=== PATIENT | female | born 1940 | race Caucasian/White ===

== ENCOUNTER 2022-08-28 16:56 | Inpatient (IN) | payer OTHER ==
[~2022-08-28] VITALS: Ht 144.8 cm; Wt 37.2 kg
--- NOTE | 2022-08-28 17:00 | NUR ---
RECEIVED PT FROM VILMA DOUGHERTY. PT BIB FAMILY MEMBER FROM URGENT CARE, PT HAS HAD SOB X2 DAYS, PT WAS DX WITH PNEUMONIA 2 WEEKS AGO. RESP SHALLOW, LUNG SOUND DIMINSHED. PT ON N/C AT 3 LPM. O2 SAT AT 97%. NORMAL S1S2 NOTED. DENIES N/V/D/C. DISTAL PULSES NORMAL, SKIN WARM, CAP REFILL < 3 SECS, NO EDEMA. DENIES PAIN. SIDERAILS UP X2.
[2022-08-28 17:07] VITALS: BP_SYST 153
[2022-08-28] MEDS ORDERED: NACL 0.9% 1,000 ML IV ONE (17:30)
--- NOTE | 2022-08-28 17:36 | NUR ---
DR. VILLALPANDO AT BEDSIDE TO ASSESS PT.
[2022-08-28 17:56] LABS: MONOCYTES # (AUTO) 0.1 K/uL (0.0-1.0); RED CELL DISTRIBUTION WIDTH 14.5 % (9.0-15.0)
[2022-08-28 18:04] LABS: BASOPHILS % (AUTO) 0.5 % (0.0-2.0); EOSINOPHILS % (AUTO) 0.1 % (0.0-4.0); HEMATOCRIT 40.3 % (36-48); HEMOGLOBIN 13.4 g/dL (12.0-16.0); LYMPHOCYTES # (AUTO) 0.8 K/uL (1.0-5.5); LYMPHOCYTES % (AUTO) 8.3 % (20.5-51.5); MEAN CORPUSCULAR HEMOGLOBIN 30 pg (27-31); MEAN CORPUSCULAR HGB CONC 33 % (32-36); MEAN CORPUSCULAR VOLUME 89 fL (79.0-98.0); MONOCYTES % (AUTO) 1.1 % (1.7-9.3); NEUTROPHILS # (AUTO) 8.5 K/uL (1.8-7.7); PLATELET COUNT (AUTO) 418 K/uL (130-430); RED BLOOD CELL COUNT(AUTO) 4.52 MIL/uL (4.2-6.2); WHITE BLOOD COUNT (AUTO) 9.4 K/uL (4.8-10.8)
--- NOTE | 2022-08-28 18:14 | NUR ---
LABS OBTAINED, COVID/FLU OBTAINED, EKG COMPLETED, CXR COMPLETED. NS 1000ML BOLUS INITATED AT 999ML/HOUR TO BE COMPLETED AT 1915. PT DENIES PAIN.
--- NOTE | 2022-08-28 18:15 | NUR ---
DR. VILLALPANDO MADE AWARE PT HAS BLE EDEMA. DR. VILLALPANDO STATED HE WILL ORDER U/S TO RULE OUT DVT.
[2022-08-28 18:25] LABS: ANION GAP 4 (5-15); CHLORIDE 95 mmol/L (98-107); CREATININE 0.54 mg/dL (0.55-1.30); GLUCOSE 112 mg/dL (70-99); UREA NITROGEN, BLOOD 11 mg/dL (8-21)
[2022-08-28] MEDS ORDERED: PRED10TA PO (18:28)
[2022-08-28] MEDS ORDERED: LOSA50TA28 PO (18:28)
[2022-08-28] MEDS ORDERED: ALBU2.5V7 INH (18:28)
[2022-08-28] MEDS ORDERED: LEVO100T9 PO (18:28)
[2022-08-28 18:30] LABS: ALANINE AMINOTRANSFERASE 7 U/L (12-78); ALBUMIN 3.1 g/dL (3.4-4.8); ASPARTATE AMINOTRANSFERASE 15 U/L (10-37); TOTAL BILIRUBIN 0.9 mg/dL (0.0-1.0)
[2022-08-28 19:13] LABS: BILIRUBIN,URINE NEGATIVE (NEGATIVE); CLARITY/URINE CLOUDY (CLEAR); COLOR,URINE YELLOW (YELLOW); GLUCOSE,URINE NEGATIVE (NEGATIVE); KETONES,URINE TRACE (NEGATIVE); LEUKOCYTE ESTERASE ,URINE 2+ (NEGATIVE); NITRITE, URINE NEGATIVE (NEGATIVE); PH,URINE 7.5 (5.0-8.0); PROTEIN URINE NEGATIVE (NEGATIVE); UROBILINOGEN,URINE 0.2 (0.2-1.0)
[2022-08-28 19:23] LABS: BLOOD, URINE TRACE (NEGATIVE)
[2022-08-28] MEDS ORDERED: methylPREDNISolone SOD SUCC/PF 62.5 MG/ML VIAL IVP ONE (19:45)
[2022-08-28] MEDS ORDERED: ALBUTEROL SULFATE 0.083% 2.5 MG/3 ML VIAL.NEB INH ONE (19:45)
[2022-08-28] MEDS ORDERED: MAGNESIUM SULFATE 50 ML IV ONE (19:45)
--- NOTE | 2022-08-28 19:47 | NUR ---
MED REC COMPLETED. PT ENDORSED TO VILMA GRANT.
[2022-08-28] MEDS ORDERED: AZITHROMYCIN 500 MG in NS 250 ML IV ONE (20:30)
[2022-08-28] MEDS ORDERED: cefTRIAXone 1 GM IVPB PREMIX 50 ML IV ONE (20:30)
[2022-08-28 20:38] LABS: BACTERIA,URINE MODERATE /HPF (None Seen); RBC,URINE 0-3 /HPF (0-3)
[2022-08-28 20:39] LABS: URINE AMORPHOUS PHOSPHATES 2+ /HPF (None Seen)
--- NOTE | 2022-08-28 20:41 | NUR ---
Admit bed requested Patient will be admitted to care of Dr. Snow Admitted to Telemetry unit. Diagnosis Respiratory Failure Inpatient (Yes or No) yes Observation (Yes or No) no Orientation concerns or request close to nursing station (Yes or No) no Covid Status negative On vent or bipap no Isolation requirements no Needs a sitter no From Home (Yes or if No enter name of facility) yes Requires Dialysis (Yes or No) no Med Rec Completed (Yes of No) yes
[2022-08-28] MEDS ORDERED: AZITHROMYCIN 500 MG/VIAL (ZITHROMAX) IV ONE (21:16)
--- NOTE | 2022-08-28 22:30 | NUR ---
Patient resting quietly. No acute distress noted. Vital signs within normal range.
--- NOTE | 2022-08-28 23:15 | NUR ---
ASSISTED PATIENT TO BEDSIDE COMMODE
--- NOTE | 2022-08-29 | NUR ---
DAUGHTER OF PATIENT BROUGHT FOOD FROM OUTSIDE FOR PATIENT.
--- NOTE | 2022-08-29 00:30 | NUR ---
Patient will be admitted to care of [facility]. Admitted to TELE unit. Will go to room 114B. Belongings list completed. Complete and up to date summary report printed. SBAR report to be given at bedside with opportunity for questions.
[2022-08-29 01:35] VITALS: BP_SYST 109
--- NOTE | 2022-08-29 02:00 | NUR ---
pt is Kyrgyz speaker with daughter accompany her, pt is ambulatory with Assist with oxygen 2 litter nasal canulla sating with 95 %. no skin problem noted, pt was provided bed commode on her bedside
--- NOTE | 2022-08-29 05:35 | NUR ---
CONSULTATION PAGED/CALLED Reason for Consultation: RESP. FAILURE/ COPD Person Who was Notified: MANSOOR Consulting Physician: CLAUDIA Diabetologist Specialty: PULMO Ordering Physician: JEREMI
--- NOTE | 2022-08-29 06:37 | NUR ---
daughter called wanted the pt to be moved to different room SHARON since patient roomate is coughing all the time. i have explained the daughter that i will talk to the hand cigar making supervisor and request to be transferred, but she is insisted to want NOW. i have explained again, but she doesn't want to take as no answers.
[2022-08-29 08:00] VITALS: BP_SYST 124
[2022-08-29] MEDS ORDERED: HYDROcodone/ACETAMIN 10-325 MG TAB PO PRN (10:15)
[2022-08-29] MEDS ORDERED: ONDANSETRON HCL 4 MG/2 ML VIAL IVP PRN (10:15)
[2022-08-29] MEDS ORDERED: NALOXONE HCL 0.4 MG/ML AMP (NARCAN) IVP PRN ×2 (10:15)
[2022-08-29] MEDS ORDERED: HYDROcodone/ACETAMIN 5-325 MG TAB (NORCO/ VICODIN) PO PRN (10:15)
[2022-08-29] MEDS ORDERED: ACETAMINOPHEN 325 MG TABLET PO PRN (10:15)
[2022-08-29] MEDS ORDERED: LOSARTAN POTASSIUM 50 MG TABLET (COZAAR) PO ONE (10:30)
[2022-08-29] MEDS: ALBUTEROL SULFATE 0.083% 2.5 MG/3 ML VIAL.NEB INH SCH ×4 (11:13→23:49)
[2022-08-29] MEDS: IPRATROPIUM BROM 0.5 MG/2.5 ML VIAL.NEB (ATROVENT) INH SCH ×4 (11:13→23:49)
--- NOTE | 2022-08-29 11:27 | NUR ---
CONSULTATION PAGED/CALLED Reason for Consultation: [] UTI/PNA Person Who was Notified: [] AYUSH Consulting Physician: [] DR HORNER Floral Specialist Specialty: [] ID Ordering Physician: [] DR Triston BLOOD
[2022-08-29] MEDS ORDERED: cefTRIAXone 1 GM IVPB PREMIX 50 ML IV SCH (12:00)
[2022-08-29 12:01] VITALS: BP_SYST 143
[2022-08-29] MEDS: AZITHROMYCIN 500 MG in NS 250 ML IV SCH (12:50)
[2022-08-29] MEDS ORDERED: NORMAL SALINE 5 ML DISP.SYRIN IVF SCH (14:00)
[2022-08-29] MEDS: FLUCONAZOLE 200 mg/ NS 100 ML IV SCH (14:23)
[2022-08-29] MEDS: NORMAL SALINE 5 ML DISP.SYRIN IVF SCH ×2 (14:23→21:26)
[2022-08-29 15:48] VITALS: BP_SYST 105
[2022-08-29 16:00] VITALS: BP_SYST 122
--- NOTE | 2022-08-29 19:00 | NUR ---
P.T. NOTES P.T. EVAL COMPLETED; REFER TO EVAL FOR DETAILS.
[2022-08-29 20:00] VITALS: BP_SYST 138
[2022-08-29] MEDS: CEFEPIME 2 GM in D5W 100 ML IV SCH (21:25)
[2022-08-29] MEDS: METHYLPREDNISOLONE SOD SUCC 40 MG/ML VIAL IVP SCH (21:25)
[2022-08-30] VITALS (7 sets, daily range): BP systolic 131–159
[2022-08-30] MEDS: IPRATROPIUM BROM 0.5 MG/2.5 ML VIAL.NEB (ATROVENT) INH SCH ×5 (04:02→22:12)
[2022-08-30] MEDS: ALBUTEROL SULFATE 0.083% 2.5 MG/3 ML VIAL.NEB INH SCH ×5 (04:02→22:12)
[2022-08-30] MEDS: NORMAL SALINE 5 ML DISP.SYRIN IVF SCH ×3 (05:40→21:18)
[2022-08-30 05:44] LABS: BASOPHILS % (AUTO) 0.1 % (0.0-2.0); HEMATOCRIT 39.3 % (36-48); HEMOGLOBIN 13.2 g/dL (12.0-16.0); LYMPHOCYTES # (AUTO) 0.5 K/uL (1.0-5.5); LYMPHOCYTES % (AUTO) 5.8 % (20.5-51.5); MEAN CORPUSCULAR HEMOGLOBIN 30 pg (27-31); MEAN CORPUSCULAR HGB CONC 34 % (32-36); MEAN CORPUSCULAR VOLUME 90 fL (79.0-98.0); MONOCYTES % (AUTO) 0.5 % (1.7-9.3); NEUTROPHILS # (AUTO) 8.3 K/uL (1.8-7.7); NEUTROPHILS % (AUTO) 93.6 % (40.0-70.0); PLATELET COUNT (AUTO) 430 K/uL (130-430); RED BLOOD CELL COUNT(AUTO) 4.38 MIL/uL (4.2-6.2); RED CELL DISTRIBUTION WIDTH 14.8 % (9.0-15.0); WHITE BLOOD COUNT (AUTO) 8.9 K/uL (4.8-10.8)
--- NOTE | 2022-08-30 05:44 | NUR ---
PIV TO LAC D/C ,REDNESS NOTED TO SITE. RE-STARTED A NEW PIV TO RFA GAUGE 20 , FLUSHES WELL WITH GOOD BLOOD RETURN NOTED . PATIENT TOLERATED PROCEDURE WELL
[2022-08-30 06:00] LABS: ALANINE AMINOTRANSFERASE 2 U/L (12-78); ALBUMIN 2.8 g/dL (3.4-4.8); ANION GAP 6 (5-15); ASPARTATE AMINOTRANSFERASE 13 U/L (10-37); C-REACTIVE PROTEIN QUANT 3.5 mg/dL (0-0.5); CHLORIDE 98 mmol/L (98-107); CREATININE 0.72 mg/dL (0.55-1.30); GLUCOSE 160 mg/dL (70-99); PHOSPHORUS 3.9 mg/dL (2.7-4.5); TOTAL BILIRUBIN 0.4 mg/dL (0.0-1.0); UREA NITROGEN, BLOOD 17 mg/dL (8-21)
[2022-08-30] MEDS: LEVOTHYROXINE SODIUM 0.1 MG TABLET PO SCH (06:03)
[2022-08-30 06:42] LABS: ERYTHROCYTE SEDIMENTATION RATE 48 MM/HR (0-20)
[2022-08-30] MEDS: METHYLPREDNISOLONE SOD SUCC 40 MG/ML VIAL IVP SCH ×2 (09:12→21:05)
[2022-08-30] MEDS: LOSARTAN POTASSIUM 50 MG TABLET (COZAAR) PO SCH (09:12)
[2022-08-30] MEDS: CEFEPIME 2 GM in D5W 100 ML IV SCH ×2 (09:12→21:07)
--- NOTE | 2022-08-30 13:36 | NUR ---
Report received from CATHI Goyal for continuity of care. Patient in stable condition. Respiration even and unlabored. No c/o pain at this time.
[2022-08-30] MEDS: FLUCONAZOLE 200 mg/ NS 100 ML IV SCH (13:50)
[2022-08-30] MEDS: AZITHROMYCIN 500 MG in NS 250 ML IV SCH (13:51)
--- NOTE | 2022-08-30 16:21 | NUR ---
Dietitian Recommendations * Liberalize diet to Regular diet * Add Ensure TID, Eron BID (supplements yield 1230 kcal/day, 65 gm protein/day) * Encourage good PO intakes LP, MS, RD Please refer to Nutrition Assessment for details. Addendum: 08/30/22 at [address] Amended: Links added.
--- NOTE | 2022-08-30 18:51 | NUR ---
Report give to awake overnight counselor RN for continuity of care. Patient stable.
--- NOTE | 2022-08-30 19:34 | NUR ---
RECEIVED PT LYING IN BED, PT WITH TACHYPNEA. PT ON 3L O2 O2 SAT 94% IV TO RT FA SITE CDI. LUNG SOUNDS CLEAR. PALPABLE PULSE TO ALL EXTREMITIES. ENCOURAGED PT TO SHIFT WEIGHT. BEDSIDE COMMODE NEAR BED. FAMILY MEMBER AT BEDSIDE. BED ALARM ON BED IN LOW POSITION.
[2022-08-31] MEDS: IPRATROPIUM BROM 0.5 MG/2.5 ML VIAL.NEB (ATROVENT) INH SCH ×7 (00:07→23:42)
[2022-08-31] MEDS: ALBUTEROL SULFATE 0.083% 2.5 MG/3 ML VIAL.NEB INH SCH ×7 (00:07→23:42)
[2022-08-31 00:14] VITALS: BP_SYST 150
--- NOTE | 2022-08-31 02:00 | NUR ---
pt was given to me from another nurse, pt is alert and oriented with nasal canula 2 L. pt has bed side commode. able to urinate
[2022-08-31] MEDS: NORMAL SALINE 5 ML DISP.SYRIN IVF SCH ×2 (06:00→14:00)
[2022-08-31 07:23] LABS: HEMATOCRIT 37.7 % (36-48); HEMOGLOBIN 12.5 g/dL (12.0-16.0); LYMPHOCYTES # (AUTO) 0.4 K/uL (1.0-5.5); LYMPHOCYTES % (AUTO) 5.2 % (20.5-51.5); MEAN CORPUSCULAR HEMOGLOBIN 30 pg (27-31); MEAN CORPUSCULAR HGB CONC 33 % (32-36); MEAN CORPUSCULAR VOLUME 90 fL (79.0-98.0); MONOCYTES # (AUTO) 0.1 K/uL (0.0-1.0); MONOCYTES % (AUTO) 1.3 % (1.7-9.3); NEUTROPHILS # (AUTO) 7.6 K/uL (1.8-7.7); NEUTROPHILS % (AUTO) 93.5 % (40.0-70.0); PLATELET COUNT (AUTO) 387 K/uL (130-430); RED CELL DISTRIBUTION WIDTH 14.2 % (9.0-15.0); WHITE BLOOD COUNT (AUTO) 8.1 K/uL (4.8-10.8)
[2022-08-31 07:39] LABS: ANION GAP 5 (5-15); C-REACTIVE PROTEIN QUANT 1.3 mg/dL (0-0.5); CHLORIDE 94 mmol/L (98-107); CREATININE 0.45 mg/dL (0.55-1.30); GLUCOSE 149 mg/dL (70-99); UREA NITROGEN, BLOOD 16 mg/dL (8-21)
[2022-08-31] MEDS: LEVOTHYROXINE SODIUM 0.1 MG TABLET PO SCH (09:09)
[2022-08-31] MEDS: LOSARTAN POTASSIUM 50 MG TABLET (COZAAR) PO SCH (09:09)
[2022-08-31] MEDS: METHYLPREDNISOLONE SOD SUCC 40 MG/ML VIAL IVP SCH ×2 (09:10→20:42)
[2022-08-31] MEDS: CEFEPIME 2 GM in D5W 100 ML IV SCH ×2 (09:10→20:43)
[2022-08-31 12:27] VITALS: BP_SYST 128
[2022-08-31 12:54] LABS: ERYTHROCYTE SEDIMENTATION RATE 31 MM/HR (0-20)
[2022-08-31] MEDS: AZITHROMYCIN 500 MG in NS 250 ML IV SCH (13:10)
--- NOTE | 2022-08-31 15:04 | NUR ---
0800: AWAKE, ALERT, ORIENTED X 3 TO NAME, PERSON, AND PLACE. NO S/S OF ANY ACUTE DISTRESS NOTED, SHORTNESS OF BREATH ON EXERTION. WILL CONTINUE TO REASSESS PRN. 1230: TOLERATED PO WELL WITH FAIR APPETITE NO ABDOMINAL DISCOMFORT NOTED.
[2022-08-31 15:40] VITALS: BP_SYST 129
--- NOTE | 2022-08-31 18:57 | NUR ---
PATIENT HAD REMAINED STABLE, W/O ANY CHANGE IN LOC, AFEBRILE, IV DIFLUCAN WAS DC'D BY MAHENDRA BUSTILLO TO DISCHARGE HOME AND CONTINUE ON PO LEVAQUIN. WILL ENDORSE PATIENT TO PM SHIFT NURSE.
[2022-08-31 20:00] VITALS: BP_SYST 136
[2022-09-01 02:28] VITALS: BP_SYST 129
[2022-09-01] MEDS: IPRATROPIUM BROM 0.5 MG/2.5 ML VIAL.NEB (ATROVENT) INH SCH ×6 (03:53→23:00)
[2022-09-01] MEDS: ALBUTEROL SULFATE 0.083% 2.5 MG/3 ML VIAL.NEB INH SCH ×6 (03:53→23:00)
[2022-09-01 07:00] VITALS: BP_SYST 158
[2022-09-01] MEDS: LEVOTHYROXINE SODIUM 0.1 MG TABLET PO SCH (07:00)
[2022-09-01 07:12] LABS: BASOPHILS % (AUTO) 0.1 % (0.0-2.0); HEMOGLOBIN 12.7 g/dL (12.0-16.0); LYMPHOCYTES # (AUTO) 0.5 K/uL (1.0-5.5); LYMPHOCYTES % (AUTO) 5.5 % (20.5-51.5); MEAN CORPUSCULAR HEMOGLOBIN 30 pg (27-31); MEAN CORPUSCULAR HGB CONC 33 % (32-36); MEAN CORPUSCULAR VOLUME 90 fL (79.0-98.0); MONOCYTES # (AUTO) 0.2 K/uL (0.0-1.0); NEUTROPHILS # (AUTO) 8.5 K/uL (1.8-7.7); NEUTROPHILS % (AUTO) 92.4 % (40.0-70.0); PLATELET COUNT (AUTO) 387 K/uL (130-430); RED BLOOD CELL COUNT(AUTO) 4.22 MIL/uL (4.2-6.2); RED CELL DISTRIBUTION WIDTH 14.7 % (9.0-15.0); WHITE BLOOD COUNT (AUTO) 9.2 K/uL (4.8-10.8)
[2022-09-01 07:38] LABS: ANION GAP 5 (5-15); CHLORIDE 94 mmol/L (98-107); CREATININE 0.59 mg/dL (0.55-1.30); GLUCOSE 139 mg/dL (70-99); UREA NITROGEN, BLOOD 20 mg/dL (8-21)
[2022-09-01 08:07] VITALS: BP_SYST 129
[2022-09-01] MEDS: CEFEPIME 2 GM in D5W 100 ML IV SCH ×2 (10:00→20:10)
[2022-09-01] MEDS: LOSARTAN POTASSIUM 50 MG TABLET (COZAAR) PO SCH (10:01)
[2022-09-01] MEDS: METHYLPREDNISOLONE SOD SUCC 40 MG/ML VIAL IVP SCH ×2 (10:01→20:10)
[2022-09-01 12:00] VITALS: BP_SYST 131
[2022-09-01] MEDS: AZITHROMYCIN 500 MG in NS 250 ML IV SCH (13:48)
[2022-09-01 16:00] VITALS: BP_SYST 136
--- NOTE | 2022-09-01 19:10 | NUR ---
PATIENT RESTING IN BED, RESPIRATIONS EVEN AND UL, NO DISTRESS, NO C/O PAIN/DISCOMFORT. REPORT GIVEN TO PM NURSE FOR CONTINUITY OF CARE.
[2022-09-01 20:00] VITALS: BP_SYST 149
--- NOTE | 2022-09-01 21:46 | NUR ---
2100:YAYA BRICE CAME AND STATED PTS DAUGHTER COMPLAINING THAT ,PT IS VERY ANXIOUS AFTER THE BREATHING TREATMENT AND ITS WORSE TODAY THAN BEFORE AND SHE IS THINKING THAT ITS BECAUSE OF THE BREATHING TREATMENT. AND PTS DAUGHTER IS ASKING WETHER WE CAN CHANGE THE MEDICATION . YAYA ASKED ME TO CALL AND CHECK WITH . PAGED: DR MORAES WHO IS WALL COVERING INSTALLER CALLED BACK AROUND 2129 ,INFORMED MD THAT PTS FAMILY IS CONCERNED THAT PT IS VERY ANXIOUS AFTER GETTING THE BREATHING TREATMENT, DAUGHTER IS ASKING WETHER WE CAN CHANGE IT INTO ANOTHER MEDICATION. STATED I CANT CHANGE IT INTO ANOTHER MEDICATION IF SHE IS ANXIOUS AFTER THE BREATHING TREATMENT ,DONT GIVE BREATHING TREATMENT TONIGHT AND LET DIRECTOR EXPERIMENTAL MEDICINE COME AND ASSESS THE PT TOMORROW AND LET THEM DECIDE . ASKED MD IF PT NEEDS BREATHING TREATMENT AT NIGHT DO YOU WANT TO GIVE AN ORDER PRN . STATED NO . Addendum: 09/01/22 at 2253 by Chasity Valente RN I NOTIFIED MDS ORDER TO PRIMARY RN AND YAYA AND EXPLAINED TO IT PTS DAUGHTER JOSE , SHE SAID" I DIDNT ASK TO STOP THE MEDICATION COMPLETELY , I ASKED IF SHE SHE CAN GET ANOTHER MEDICATION OR SKIP THE NEXT DOSE , I DONT WANT TO STOP IT COMPLETELY , I WANT YOU TO GIVE THE MEDICATION IF SHE NEEDS IT , SHE IS IS BENEFITED FROM IT I WANT SHE TO HAVE IT , MIGHT BE YOU CAN SKIP THE MIDNIGHT DOSE AND GIVE THE 4 AM DOSE , BUT I DONT WANT MY MOM TO SUFFER FROM NOT TO HAVE THIS MEDICATION , DID YOU TALK TO JEREMI ?" I INFORMED HER THAT THIS IS RELATED TO BREATHING TREATMENT I CALLED DIRECTOR EXPERIMENTAL MEDICINE . AGAIN SHE REPEATED I DONT WANT TO STOP THE MEDICATION , I WANT YOU TO GIVE THE MEDICATION IF SHE REALLY NEEDS IT ." I INFORMED HER THAT I WILL NOTIFY IT TO THE RESPIRATORY THERAPIST. I NOTIFIED DAUGHTERS RESPONSE TO YAYA MULLER. ALSO I NOTIFIED MERON RAMESH ABOUT THE MD ORDER AND PTS DAUGHTERS WISH .
--- NOTE | 2022-09-01 23:01 | NUR ---
ASSIST Patient out of bed to bsc patient on 02 NC @ 3 LPM anxiety noted Family has left Home , Fall measures implemented / .
[2022-09-01] MEDS: NORMAL SALINE 5 ML DISP.SYRIN IVF SCH (23:22)
[2022-09-02 00:52] VITALS: BP_SYST 144
--- NOTE | 2022-09-02 01:12 | NUR ---
Hourly Rounding assist patient to BSC tolerated back to bed 02 SAT 93 % skin dry warm / cont. to monitor / .
[2022-09-02] MEDS: ALBUTEROL SULFATE 0.083% 2.5 MG/3 ML VIAL.NEB INH SCH ×6 (03:00→23:11)
[2022-09-02] MEDS: IPRATROPIUM BROM 0.5 MG/2.5 ML VIAL.NEB (ATROVENT) INH SCH ×6 (03:00→23:11)
[2022-09-02 06:44] LABS: BASOPHILS % (AUTO) 0.1 % (0.0-2.0); HEMATOCRIT 40.8 % (36-48); HEMOGLOBIN 13.5 g/dL (12.0-16.0); LYMPHOCYTES # (AUTO) 0.8 K/uL (1.0-5.5); LYMPHOCYTES % (AUTO) 8.1 % (20.5-51.5); MEAN CORPUSCULAR HEMOGLOBIN 30 pg (27-31); MEAN CORPUSCULAR HGB CONC 33 % (32-36); MEAN CORPUSCULAR VOLUME 90 fL (79.0-98.0); MONOCYTES # (AUTO) 0.5 K/uL (0.0-1.0); MONOCYTES % (AUTO) 5.1 % (1.7-9.3); NEUTROPHILS # (AUTO) 8.9 K/uL (1.8-7.7); NEUTROPHILS % (AUTO) 86.7 % (40.0-70.0); PLATELET COUNT (AUTO) 427 K/uL (130-430); RED BLOOD CELL COUNT(AUTO) 4.53 MIL/uL (4.2-6.2); RED CELL DISTRIBUTION WIDTH 14.3 % (9.0-15.0); WHITE BLOOD COUNT (AUTO) 10.3 K/uL (4.8-10.8)
[2022-09-02 08:00] VITALS: BP_SYST 134
[2022-09-02 08:32] LABS: ALANINE AMINOTRANSFERASE 10 U/L (12-78); ALBUMIN 2.8 g/dL (3.4-4.8); ANION GAP 1 (5-15); ASPARTATE AMINOTRANSFERASE 15 U/L (10-37); CALCIUM 8.9 mg/dL (8.4-11.0); CHLORIDE 95 mmol/L (98-107); CREATININE 0.48 mg/dL (0.55-1.30); GLUCOSE 99 mg/dL (70-99); TOTAL BILIRUBIN 0.5 mg/dL (0.0-1.0); UREA NITROGEN, BLOOD 24 mg/dL (8-21)
[2022-09-02 08:48] LABS: ERYTHROCYTE SEDIMENTATION RATE 18 MM/HR (0-20)
[2022-09-02 09:30] LABS: C-REACTIVE PROTEIN QUANT < 0.2 mg/dL (0-0.5)
[2022-09-02] MEDS: METHYLPREDNISOLONE SOD SUCC 40 MG/ML VIAL IVP SCH ×2 (10:14→21:55)
[2022-09-02] MEDS: LOSARTAN POTASSIUM 50 MG TABLET (COZAAR) PO SCH (10:14)
[2022-09-02] MEDS: CEFEPIME 2 GM in D5W 100 ML IV SCH ×2 (10:15→21:58)
[2022-09-02] MEDS: LEVOTHYROXINE SODIUM 0.1 MG TABLET PO SCH (10:16)
[2022-09-02 12:30] VITALS: BP_SYST 149
[2022-09-02] MEDS: NORMAL SALINE 5 ML DISP.SYRIN IVF SCH ×2 (13:05→21:58)
[2022-09-02] MEDS: AZITHROMYCIN 500 MG in NS 250 ML IV SCH (13:05)
[2022-09-02 16:15] VITALS: BP_SYST 139
--- NOTE | 2022-09-02 18:32 | NUR ---
Nutrition F/U: Admitting Diagnosis Respiratory failure/COPD Reviewed Pertinent Medical/Surgical Hx Medical Record; Patient; Family Member Medical History Comment: PMH: pulmonary fibrosis, hypothyroidism, and HTN per physician notes Per EMR review, pt also found w/ recurrent pneumonia, UTI, and hypoxia Subjective Information: RD rounded to patient room and s/w patient at bedside. Patient appeared fearful/anxious and RD asked how she could help. Per pt, nothing is working, I'm anxious as pt lightly tugged at her lines. RD assured patient that all lines/tubes/machines are being monitored, but RD will s/w pt RN and ask RN to visit pt in room, pt agreeable. Due to anxiety and pts current state of mind, nutrition f/u assessment with patient is not appropriate at this time. RD s/w RN who verified that pt is drinking ensure TID and receiving Eron BID. RN reports that per pt dtr: pts appetite at home is generally poor. RD called pt daughter (# per RN screen). Daughter reports pt appetite has been declining, with worsened PO more recently. Dtr reports pt likes to eat soups and flan, noticing pt only eats soft, moist foods. Dtr reports pt does not like ONS at home, however pt has been enjoying Ensure during admit so she will try them again at home. RD provided nutrition education to dtr: COPD and mealtime fatigue disc high kcal foods and snacks, offering 5-6 small meals during the day versus 3 large meals (can be overwhelming), and increased energy/protein needs. Pt daughter appreciative of nutrition information and repeated back to RD the changes she can make when feeding her mother at home: small meals/snacks, high kcal meals/snacks, Ensure ONS. Current Diet Order/Nutrition Support: Regular diet, Ensure Enlive TID, Eron BID x 3 days Patient/Significant Other Able To Verbalize Education Provided Completed 09/02 w/daughterReglape: COPD/fatigue - high kcal snacks, ONS, small meals to prevent fatigue Pertinent Medications: synthroid, solu-medrol, cozaar, NS at 5mL Pertinent Labs: Drawn 09/02 - Na 131 L, BUN 24 H, Cre 0.48 L Height (Feet) 4 feet Height (Inches) 9.00 inches Weight (Pounds) 82 pounds Weight (Calculated Kilograms) 37.302105 kilograms Patient Weight 37.195 kg Body Mass Index 17.74 kg/m2 Usual Weight 149 lbs %UBW 55 %IBW 88 [place]/Adjusted Body Weight 93#/42.5 kg. 8 Recent Weight Change Yes - 64# wt loss/43% wt change within 1 year Weight Status Underweight Food Allergies No Current % PO Fair 53% x 10 meals Estimated Energy Expenditure (kcals/day) 8841-6993 (30-35 kcal/kg IBW d/t wt gain, acute on chronic illness) Estimated Protein Required (g/day) 51-64 (1.2-1.5 gm/kg IBW d/t wt gain, acute on chronic illness) Estimated Fluid Required (l/day) 933-1119 (25-30 ml/kg CBW d/t GERIAT maintenance) Problem/Etiology/Signs/Symptoms * Moderate malnutrition R/T increased energy and protein needs a/w COPD AEB unintentional wt loss of 64#/43% wt change within 1 year and findings of muscle wasting in clavicles and thin upper extremities lacking subcutaneous adipose tissue, BMI: 17.7 kg/m2, and 88% of IBW (On-going) Expected Outcomes/Goals - Monitor appetite and PO intakes w/ goal of pt meeting >75% of estimated nutritional needs, labs trending WNL, normal GI function, and skin integrity/wt maintenance Dietitian Recommendations * Continue Regular diet + Ensure TID, Eron BID (ONS, Eron: yields 1230 kcals, 65 gm pro) * Encourage good PO intakes * Follow-up on COPD nutrition education w/daughter Follow Up High Risk: F/U in 2-3days
--- NOTE | 2022-09-02 18:38 | NUR ---
Dietitian Recommendations * Continue Regular diet + Ensure TID, Eron BID (ONS, Eron: yields 1230 kcals, 65 gm pro) * Encourage good PO intakes * Follow-up on COPD nutrition education w/daughter Please refer to nutrition f/u for details, thanks! CC, MPH, RDN
--- NOTE | 2022-09-02 19:03 | NUR ---
PATIENT RESTING IN BED, RESPIRATIONS EVEN AND UL ON 3LNC. DENIES PAIN/DISCOMFORT. NO SIGNIFICANT CHANGES THROUGHOUT SHIFT. ALL NEEDS MET. DAUGHTER AT BEDSIDE. CALL LIGHT IN EASY REACH.
[2022-09-02 20:00] VITALS: BP_SYST 142
[2022-09-02 20:06] LABS: MYCOPLASMA PNEUMONIAE IgM <770 U/mL (0-769)
[2022-09-03] VITALS: BP_SYST 148
[2022-09-03] MEDS: IPRATROPIUM BROM 0.5 MG/2.5 ML VIAL.NEB (ATROVENT) INH SCH ×4 (03:00→15:48)
[2022-09-03] MEDS: ALBUTEROL SULFATE 0.083% 2.5 MG/3 ML VIAL.NEB INH SCH ×4 (03:00→15:48)
[2022-09-03] MEDS: NORMAL SALINE 5 ML DISP.SYRIN IVF SCH ×2 (06:00→14:00)
[2022-09-03 07:01] LABS: ANION GAP 2 (5-15); C-REACTIVE PROTEIN QUANT 0.3 mg/dL (0-0.5); CALCIUM 8.1 mg/dL (8.4-11.0); CHLORIDE 93 mmol/L (98-107); CREATININE 0.51 mg/dL (0.55-1.30); GLUCOSE 141 mg/dL (70-99); UREA NITROGEN, BLOOD 23 mg/dL (8-21)
[2022-09-03 07:13] LABS: BASOPHILS % (AUTO) 0.1 % (0.0-2.0); HEMATOCRIT 42.1 % (36-48); HEMOGLOBIN 14.1 g/dL (12.0-16.0); LYMPHOCYTES # (AUTO) 0.4 K/uL (1.0-5.5); LYMPHOCYTES % (AUTO) 5.6 % (20.5-51.5); MEAN CORPUSCULAR HEMOGLOBIN 30 pg (27-31); MEAN CORPUSCULAR HGB CONC 33 % (32-36); MEAN CORPUSCULAR VOLUME 90 fL (79.0-98.0); MONOCYTES # (AUTO) 0.1 K/uL (0.0-1.0); MONOCYTES % (AUTO) 1.4 % (1.7-9.3); NEUTROPHILS % (AUTO) 92.9 % (40.0-70.0); PLATELET COUNT (AUTO) 404 K/uL (130-430); RED CELL DISTRIBUTION WIDTH 14.6 % (9.0-15.0); WHITE BLOOD COUNT (AUTO) 7.6 K/uL (4.8-10.8)
--- NOTE | 2022-09-03 07:20 | NUR ---
OPENING NOTE RECEIVED SBAR FROM NIGHT RN. PATIENT IN BED RESPIRATIONS EVEN, NON LABORED, BED IN LOW AND LOCKED POSITION CALL LIGHT WITHIN REACH, BED ALARM ON
[2022-09-03] MEDS: LEVOTHYROXINE SODIUM 0.1 MG TABLET PO SCH (07:46)
--- NOTE | 2022-09-03 08:30 | NUR ---
bsc assisted patient to bsc, large BM and voided, provided gómez care, returned to bed, no complaints of pain or discomfort
[2022-09-03] MEDS: CEFEPIME 2 GM in D5W 100 ML IV SCH (08:55)
[2022-09-03] MEDS: METHYLPREDNISOLONE SOD SUCC 40 MG/ML VIAL IVP SCH (08:55)
[2022-09-03] MEDS: LOSARTAN POTASSIUM 50 MG TABLET (COZAAR) PO SCH (08:56)
[2022-09-03 09:53] LABS: ERYTHROCYTE SEDIMENTATION RATE 20 MM/HR (0-20)
--- NOTE | 2022-09-03 11:30 | NUR ---
INFORMED DR BLOOD (ON THE FLOOR) THAT PATIENTS DAUGHTER STATES THAT PATIENT IS COMPLAINING OF TINGLING OF FINGERS AND THAT HER ANKLES HURT. PER MD PATIENT TO ADDRESS WITH PCP.
[2022-09-03] MEDS ORDERED: PRED10TA PO (12:15)
[2022-09-03] MEDS ORDERED: DOXY-244 PO (12:15)
--- NOTE | 2022-09-03 12:15 | NUR ---
bsc assisted patient to bsc, voided, provided gómez care, returned to chair, no complaints of pain or discomfort
[2022-09-03 12:25] VITALS: BP_SYST 127
--- NOTE | 2022-09-03 13:05 | NUR ---
TRANSFER OF CARE PROVIDED SBAR TO RN. PATIENT SITTING IN CHAIR BEDSIDE, 3L NASAL CANULA 02. IVF'S TKO. PATIENT DENIES ANY PAIN OR DISCOMFORT
--- NOTE | 2022-09-03 14:38 | NUR ---
Spoke w/patient's daughter-Edna. She stated patient has home O2-She will pick patient up when RN calls and lets her know the patient is ready for DC.
--- NOTE | 2022-09-03 15:32 | NUR ---
SPOKE WITH [place] IN CM AND PER [facility] UP THROUGH [facility] PT DAUGHTER MADE AWARE PT DAUGHTER ALSO MADE AWARE TO BRING HOME 02 FOR DISCHARGE AND PER DAUGHTER SHE WILL INPATIENT SERVICES DIRECTOR PT AT 5PM
[2022-09-03 15:38] VITALS: BP_SYST 135
[2022-09-03 15:42] VITALS: BP_SYST 132
[2022-09-03 16:00] VITALS: BP_SYST 135
[2022-09-03 16:25] VITALS: BP_SYST 128
--- NOTE | 2022-09-03 16:35 | NUR ---
Patient's daughter said she needed to get regulator for oxygen. It will take some time for patient's daughter to come pick her up. made aware. CATHI Kamara made aware.
--- NOTE | 2022-09-03 19:18 | NUR ---
DISCHARGE INSTRUCTIONS GIVEN TO PT AND PT DAUGHTER AT BEDSIDE UNDERSTANDING VERBALIZED IV DISCONTINUED DAUGHTER WILL GET O2 FROM CAR AND PT WILL BE ASSISTED OUT BY WHEELCHAIR NO DISTRESS NOTED AWARE OF NEW RX AT PREFERRED PHARMACY MADE AWARE TO KEEP ALL FOLLOW UP APPOINTMENTS AND MADE AWARE [facility] WILL FOLLOW
[2022-09-06 08:04] LABS: COCCIDIOIDES AB COMPLEMENT FIX 0.1 (NEGATIVE)
== END 2022-09-03 19:18 | disposition home health service (06) | DRG 871 ==
LOC: SED 16:56 → STU 20:38 → SMU 08-30 14:57
PROVIDERS: ADMIT Preventive Medicine Preventive Medicine/Occupational Environmental Medicine; ATTEND Preventive Medicine Preventive Medicine/Occupational Environmental Medicine
DX: A41.9 Sepsis, unspecified organism (principal); J15.6 Pneumonia due to other Gram-negative bacteria; J96.21 Acute and chronic respiratory failure with hypoxia; J44.1 Chronic obstructive pulmonary disease with (acute) exacerbation; E87.1 Hypo-osmolality and hyponatremia; N39.0 Urinary tract infection, site not specified; J44.0 Chronic obstructive pulmonary disease with (acute) lower respiratory infection; Z20.822 Contact with and (suspected) exposure to COVID-19; J84.10 Pulmonary fibrosis, unspecified; E88.09 Other disorders of plasma-protein metabolism, not elsewhere classified; I10 Essential (primary) hypertension; E03.9 Hypothyroidism, unspecified; E83.52 Hypercalcemia; E83.51 Hypocalcemia; Z87.01 Personal history of pneumonia (recurrent)
CPT/HCPCS: 36415; 71045; 80048; 80053; 81000; 83605; 83735; 84100; 85025; 85651-TC; 86140; 86480; 86635; 86738; 87040; 87070-TC; 87086; 87205-TC; 87305; 93005; 93971; 94640; 94760; 96361; 96365; 96367; 97112-GP; 97116-GP; 97530-GP; 99291; G0378; J0456; J0692; J0696; J1030; J1450; J2930; J3475; J7050; J7060; J7613